=== PATIENT | male | born 1965 | race Caucasian/White ===

== ENCOUNTER 2018-09-06 07:45 | Day surgery (SDC) | payer OTHER ==
[2018-09-06] MEDS: DEXAMETHASONE 1 MG TAB PO (08:44)
[2018-09-06] MEDS: GABAPENTIN 300 MG CAP PO (08:44)
[2018-09-06] MEDS ORDERED: METOCLOPRAMIDE 10 MG INJ (09:28)
[2018-09-06] MEDS ORDERED: ONDANSETRON 4 MG INJ (09:28)
[2018-09-06] MEDS ORDERED: MIDAZOLAM 1 MG/ML 2 ML INJ (09:28)
[2018-09-06] MEDS ORDERED: PROPOFOL 20 ML (09:28)
[2018-09-06] MEDS ORDERED: LABETALOL HCL 20MG INJ IV (09:30)
[2018-09-06] MEDS ORDERED: hydrALAzine 20 MG INJ IV (09:30)
[2018-09-06] MEDS ORDERED: OXYCODONE/ACETAMINOPHEN (5/325) TAB PO ×2 (09:30)
[2018-09-06] MEDS ORDERED: DIPHENHYDRAMINE 50 MG INJ IV (09:30)
[2018-09-06] MEDS ORDERED: HYDROmorphONE 1 MG/5 ML IV SYRINGE IV ×2 (09:30)
[2018-09-06] MEDS ORDERED: ONDANSETRON 4 MG INJ IV (09:30)
[2018-09-06] MEDS ORDERED: LORAZEPAM 2 MG INJ IV (09:30)
[2018-09-06] MEDS ORDERED: FENTAnyl 50 MCG/ML VIAL ×2 (09:34→10:57)
[2018-09-06] MEDS ORDERED: CEFAZOLIN 1 GM INJ (09:34)
[2018-09-06] MEDS ORDERED: EPHEDrine SULFATE 50 MG/5 ML SYG (10:45)
[2018-09-06] MEDS: BUPIVACAINE 0.5% (SDV) 30 ML, morphine SULFATE (PF) 8 MG, EPINEPHrine 0.3 MG, KETOROLAC... IRR (11:21)
[2018-09-06] MEDS: HYDROmorphONE 1 MG/5 ML IV SYRINGE IV (12:36)
== END 2018-09-06 14:20 | disposition home or self-care (01) ==
LOC: SDS 07:45
DX: M25.851 Other specified joint disorders, right hip (principal); S73.191D Other sprain of right hip, subsequent encounter; X58.XXXD Exposure to other specified factors, subsequent encounter; M13.851 Other specified arthritis, right hip; I10 Essential (primary) hypertension; E78.5 Hyperlipidemia, unspecified; E11.9 Type 2 diabetes mellitus without complications
CPT/HCPCS: 29914; 73530; 82962